=== PATIENT | male | born 1995 | race African-American/Black ===

== ENCOUNTER 2017-01-18 17:59 | Emergency (ER) | payer SELFPAY ==
[~2017-01-18] VITALS: Ht 177.8 cm; Wt 54.1 kg
[~2017-01-18 17:59] MED LIST: ALBU6.7H INH; MEDR4PAK3 PO
[2017-01-18 18:03] VITALS: BP 109/66; PULSE 68; RESP 16; TEMP 98.5; O2SAT 100
[2017-01-18] MEDS ORDERED: ALBU6.7H INH (18:14)
--- NOTE | 2017-01-18 18:21 | PD ---
HPI Chief Complaint: Skin Problem Time Seen by Provider: 18:17 Travel History International Travel<30 days: No Contact w/Intl Traveler<30days: No Traveled to known affect area: No History of Present Illness HPI 21-year-old Afro-[place] male presents emergency Department with red raised, erythematous rash to the base of the neck and bilateral upper shoulders. Patient states she's noticed this 2 days ago and it continues to be itchy and bothersome. He tried some [id number]-duotqsy hydrocortisone cream and topical rubbing alcohol without improvement. A specific exposure history, or other symptoms such as fever chills etc. Patient states he was unable to work today as they thought it may be contagious. He works as a cook. He has no known drug allergies. PFSH Past Medical History Asthma: Yes Diminished Hearing: No Musculoskeletal: Yes (RIGHT WRIST DISLOCATION) Respiratory: Yes (asthma) Immunizations Current: Yes Past Surgical History Surgical History: No Previous Surgery Social History Alcohol Use: No Tobacco Use: No Substance Use: No Allergies-Medications (Allergen,Severity, Reaction): Coded Allergies: No Known Allergies (Verified , 01/18/17) Reported Meds & Prescriptions Reported Meds & Active Scripts Active Reported Proventil Hfa 6.7 GM Inh (Albuterol Sulfate) 90 Mcg/Act Aer 2 Puff INH Q4-6H PRN Review of Systems Except as stated in HPI: all other systems reviewed are Neg General / Constitutional: No: Fever Eyes: No: Visual changes HENT: No: Headaches Cardiovascular: No: Chest Pain or Discomfort Respiratory: No: Shortness of Breath Gastrointestinal: No: Abdominal Pain Genitourinary: No: Dysuria Musculoskeletal: No: Pain Skin: Positive Rash, Positive Itching Neurologic: No: Weakness Psychiatric: No: Depression Endocrine: No: Polydipsia Hematologic/Lymphatic: No: Easy Bruising Physical Exam Narrative GENERAL: Patient appears in no acute distress. SKIN: Warm and dry. Normal color. Normal turgor. Patient is noted to have several erythematous raised irregular lesions to both sides of the neck and upper shoulders consistent with insect bites with localized allergic reaction. No signs of cellulitis or drainage are noted. HEAD: Atraumatic. Normocephalic. EYES: Pupils equal and round. No scleral icterus. No injection or drainage. ENT: No nasal bleeding or discharge. Mucous membranes pink and moist. Pharynx is clear. NECK: Trachea midline. Neck is supple without significant lymphadenopathy. CARDIOVASCULAR: Regular rate and rhythm. RESPIRATORY: No accessory muscle use. Clear to auscultation. Breath sounds equal bilaterally. MUSCULOSKELETAL: Extremities without clubbing, cyanosis, or edema. No obvious deformities. NEUROLOGICAL: Awake and alert. No obvious cranial nerve deficits. Motor grossly within normal limits. Five out of 5 muscle strength in the arms and legs. Normal speech. PSYCHIATRIC: Appropriate mood and affect; insight and judgment normal. Data Data Last Documented VS Vital Signs Date Time Temp Pulse Resp B/P Pulse Ox O2 Delivery O2 Flow Rate FiO2 01/18/17 18:03 98.5 68 16 109/66 100 MDM Medical Decision Making Medical Screen Exam Complete: Yes Emergency Medical Condition: Yes Differential Diagnosis Rash. Insect bite. Local reaction. Allergic reaction. Narrative Course Patient is medically stable at time of exam. Patient is to use [id number] Benadryl or Caladryl lotion as well as oral Benadryl as needed for itch. No further medical treatment is felt to be necessary. Note for work is given. Diagnosis Primary Impression: Insect bite Qualified Code: W57.XXXA - Insect bite, initial encounter Patient Instructions: General Instructions, Insect Bite or Sting (ED) Departure Forms: Work Release Enter return to work date: Jan 19, 2017 Additional Instructions: Patient is to use [id number] Benadryl or Caladryl lotion as well as oral Benadryl as needed for itch. No further medical treatment is felt to be necessary. Note for work is given. Med/Other Pt SpecificInfo: No Meds Exist/No RX given Disposition: 01 DISCHARGE HOME Condition: Stable Armani Morrison Jan 18, 2017 18:21
== END 2017-01-18 18:39 | disposition home or self-care (01) ==
LOC: PHEFT 17:59
DX: S10.96XA Insect bite of unspecified part of neck, initial encounter (principal); W57.XXXA Bitten or stung by nonvenomous insect and other nonvenomous arthropods, initial encounter
CPT/HCPCS: 99282